=== PATIENT | female | born 1950 | race Caucasian/White ===

== ENCOUNTER → 2017-08-01 | Outpatient (CLI) | payer MEDICARE, OTHER | END | disposition home or self-care (01) | LOC: GMAM 10:57 | PROVIDERS: ATTEND Family Medicine | DX: Z00.00 Encounter for general adult medical examination without abnormal findings (principal); R53.82 Chronic fatigue, unspecified ==

== ENCOUNTER → 2017-08-06 | Outpatient (CLI) | payer MEDICARE, OTHER ==
--- NOTE | 2017-08-07 10:09 | MAM ---
EXAM DESCRIPTION: 3D Screening BILATERAL CLINICAL HISTORY: 67 yearsFemaleSCREENING no complaints. Remote family history of ovarian cancer. Postmenopausal. No HRT. Bilateral cyst aspirations. COMPARISON: Baseline study at this facility.. No prior reports available. TECHNIQUE: Bilateral CC and MLO projection full-field images, 3-D tomosynthesis digital mammographic technique. Also bilateral synthesized CC/ MLO full-field images. CAD not utilized. FINDINGS: The breast parenchymal density pattern is: Heterogeneously dense breast tissue, which may obscure small masses. No skin thickening or nipple retraction bilateral solitary coarse and microcalcifications. Focal asymmetry versus architectural distortion in the retroareolar left breast slightly superior and lateral to the posterior nipple line. Partially well-circumscribed margin. Not associated with abnormal calcifications. No focal, stellate mass or density, focal asymmetry , and no suspicious microcalcifications right breast. IMPRESSION: BI-RADS CATEGORY: 0 - INCOMPLETE- Need additional imaging evaluation. FOLLOW-UP: Recall for additional imaging: Targeted ultrasound of the retroareolar left breast.. Written communication concerning the IMPRESSION and Follow-up, will be mailed to the patient and referring health care provider. Electronically signed by: Crescencio Sears MD 08/07/2017 10:08 AM CDT
== END | disposition home or self-care (01) ==
LOC: FT 08:49
PROVIDERS: ATTEND Family Medicine
DX: Z12.31 Encounter for screening mammogram for malignant neoplasm of breast (principal)
CPT/HCPCS: 77063; G0202

== ENCOUNTER → 2017-08-15 | Outpatient (CLI) | payer MEDICARE, OTHER ==
--- NOTE | 2017-08-15 10:30 | US ---
EXAM DESCRIPTION: Breast,Left: Ultrasound CLINICAL HISTORY: 67 yearsFemaleABNORMAL MAMMO COMPARISON: Digital 3-D tomosynthesis screening bilateral breast August 06, 2017 TECHNIQUE: Transcutaneous scanning of the left retroareolar breast utilizing two-dimensional and Doppler modes. Scanning performed by the geodetic surveyor technologist and Dr. Sears. FINDINGS: Heterogeneous fibroglandular and fatty tissues behind the nipple at the 1200 clock position. No discrete solid mass or cyst. At the 1100 clock position 2 cm from the nipple is a anechoic structure with well-circumscribed arizmendi and parallel orientation. Posterior acoustic features and nonvascular. Dimensions are 1.7 x 1.3 x 0.4 cm. IMPRESSION: BI-RADS CATEGORY: 2 - BENIGN FINDINGS. FOLLOW UP: Routine digital bilateral mammographic screening, one year interval from July 2017. The findings and the follow-up plan were reviewed in person with the patient after the examination. Written communication explaining the IMPRESSION and follow-up, will be mailed to the patient and referring health care provider. According to the [employer], yearly mammograms are recommended starting at age 40 and continuing as long as a woman is in good health. Any breast change noted on a breast self-exam should be reported promptly to the patient's healthcare provider. Breast MRI is recommended for women with an approximately 20-25% or greater lifetime risk of breast cancer, including women with a strong family history of breast or ovarian cancer and women who have been treated for Hodgkin's disease. A negative mammographic report should not delay tissue diagnosis in patients with significant clinical history or physical findings. Extremely dense breast tissue limits the sensitivity of digital mammography. Electronically signed by: Crescencio Sears MD 08/15/2017 10:29 AM CDT
== END ==
LOC: MAMMO 09:16
PROVIDERS: ATTEND Family Medicine
DX: R92.8 Other abnormal and inconclusive findings on diagnostic imaging of breast (principal)

== ENCOUNTER 2017-11-12 05:42 | Day surgery (SDC) | payer MEDICARE, OTHER ==
[2017-11-12] MEDS ORDERED: PROPARACAINE 0.5% OPHTH SOL 15 ML BTTL ONE (05:48)
[2017-11-12] MEDS ORDERED: TROP 1%/CYCLOPEN 1%/PHENYL 2% DROPS ONE (05:49)
[2017-11-12] MEDS ORDERED: MIDAZOLAM INJ 2 MG/2 ML VIAL ONE ×2 (06:57→08:54)
[2017-11-12] MEDS ORDERED: PROPARACAINE 0.5% OPHTH SOL 15 ML BTTL LEFT_EYE ONE (08:53)
[2017-11-12] MEDS ORDERED: LIDOCAINE 1% PF 2 ML AMP INJ ONE (09:02)
[2017-11-12] MEDS ORDERED: TOBRAMYCIN SULF 0.3 % OPHT SOL 1 DROP LEFT_EYE ONE ×2 (09:02→09:09)
[2017-11-12] MEDS ORDERED: DEXAMETHASONE 0.1% OPHTH SOL 1 DROP LEFT_EYE ONE ×2 (09:02→09:09)
[2017-11-12] MEDS ORDERED: BRIMONIDINE 0.2% OPHTH DROPS LEFT_EYE ONE ×2 (09:03→09:09)
[2017-11-12 09:36] VITALS: O2SAT 98
[2017-11-13 09:09] VITALS: BP 134/82; TEMP 97.2
== END 2017-11-12 09:52 | disposition home or self-care (01) ==
LOC: AMB 05:42
PROVIDERS: ATTEND Ophthalmology
DX: H25.12 Age-related nuclear cataract, left eye (principal); J44.9 Chronic obstructive pulmonary disease, unspecified; F41.9 Anxiety disorder, unspecified; F17.200 Nicotine dependence, unspecified, uncomplicated; Z79.82 Long term (current) use of aspirin; Z79.899 Other long term (current) drug therapy
CPT/HCPCS: 00142; 66984; J2250

== ENCOUNTER 2017-11-26 05:37 | Day surgery (SDC) | payer MEDICARE, OTHER ==
[2017-11-26] MEDS ORDERED: TROP 1%/CYCLOPEN 1%/PHENYL 2% DROPS ONE ×2 (05:49)
[2017-11-26] MEDS ORDERED: PROPARACAINE 0.5% OPHTH SOL 15 ML BTTL ONE ×2 (05:49)
[2017-11-26] MEDS: TOBRAMYCIN SULF 0.3 % OPHT SOL 1 DROP RIGHT_EYE ONE ×2 (07:02→08:03)
[2017-11-26] MEDS ORDERED: MIDAZOLAM INJ 2 MG/2 ML VIAL ONE ×2 (07:11→07:57)
[2017-11-26] MEDS ORDERED: PROPARACAINE 0.5% OPHTH SOL 15 ML BTTL RIGHT_EYE ONE (07:52)
[2017-11-26] MEDS ORDERED: BRIMONIDINE 0.2% OPHTH DROPS RIGHT_EYE ONE ×3 (08:03→08:10)
[2017-11-26] MEDS ORDERED: LIDOCAINE 1% PF 2 ML AMP INJ ONE (08:03)
[2017-11-26] MEDS ORDERED: DEXAMETHASONE 0.1% OPHTH SOL 1 DROP RIGHT_EYE ONE ×3 (08:04→08:10)
[2017-11-26] MEDS ORDERED: TOBRAMYCIN SULF 0.3 % OPHT SOL 1 DROP RIGHT_EYE ONE ×2 (08:08→08:10)
[2017-11-27 07:58] VITALS: O2SAT 97
[2017-11-27 08:05] VITALS: BP 138/80; TEMP 97.1
== END 2017-11-26 09:00 | disposition home or self-care (01) ==
LOC: AMB 05:37
PROVIDERS: ATTEND Ophthalmology
DX: H25.11 Age-related nuclear cataract, right eye (principal); J44.9 Chronic obstructive pulmonary disease, unspecified; Z79.899 Other long term (current) drug therapy
CPT/HCPCS: 00142; 66984; J2250

== ENCOUNTER → 2018-08-13 | Outpatient (CLI) | payer MEDICARE, OTHER ==
--- NOTE | 2018-08-15 09:45 | MAM ---
EXAM DESCRIPTION: 3D Screening BILATERAL : Digital Mammography. CLINICAL HISTORY: 68 years Female SCREENING . No complaints or personal history of breast cancer. Remote family history of breast cancer. Childbirth. Postmenopausal. No HRT. Previous breast cyst aspiration benign. Lifetime risk of developing breast cancer (Tyrer-Cuzick model)(%): 5.4 COMPARISON: Bilateral screening digital breast tomosynthesis 08/06/2017.. TECHNIQUE: Bilateral CC and MLO projection full-field images, Digital tomosynthesis mammographic technique. Bilateral digital 2-D full-field MLO images. CAD not utilized. FINDINGS: The breast parenchymal density pattern is: Heterogeneously dense breast tissue, which may obscure small masses. No skin thickening or nipple retraction. Left axillary lymph nodes. Skin mole indicated by skin marker.. Scattered solitary microcalcifications bilaterally. Bilateral more nodular densities are stable. No new focal, stellate mass or density, focal asymmetry , and no suspicious microcalcifications bilaterally. Stable mammograms compared to prior study. IMPRESSION: Benign exam. BIRAD CATEGORY: 2 BENIGN FINDINGS. RECOMMENDATIONS: FOLLOW UP: Routine digital bilateral screening, one year interval from July 2018. Written communication explaining the IMPRESSION and follow-up, will be mailed to the patient and referring health care provider. According to the [employer], yearly mammograms are recommended starting at age 40 and continuing as long as a woman is in good health. Any breast change noted on a breast self-exam should be reported promptly to the patient's healthcare provider. Breast MRI is recommended for women with an approximately 20-25% or greater lifetime risk of breast cancer, including women with a strong family history of breast or ovarian cancer and women who have been treated for Hodgkin's disease. A negative mammographic report should not delay tissue diagnosis in patients with significant clinical history or physical findings. Extremely dense breast tissue limits the sensitivity of digital mammography. Electronically signed by: Crescencio Sears MD 08/15/2018 9:44 AM CDT
== END ==
LOC: MAMMO 09:00
PROVIDERS: ATTEND Family Medicine
DX: Z12.31 Encounter for screening mammogram for malignant neoplasm of breast (principal)

== ENCOUNTER → 2018-09-24 | Outpatient (CLI) | payer MEDICARE, OTHER ==
--- NOTE | 2018-09-24 13:23 | CT ---
Procedure: CT LUNG SCREENING Exam Date: 09/24/2018. Ordering Provider: Angel Luis Stephen Clinical Indication: HISTORY OF TOBACCO USE This patient meets eligibility criteria for low-dose CT lung cancer screening. Comparison: None. Technique: Using a multislice scanner, sequential helical axial imaging was obtained in the thorax, 2.5 mm thickness, 2.5 mm separation, from the level of the thoracic inlet through the lung bases without IV contrast. A low dose protocol was utilized: CTDI: 1.75 mGy. 120. kVp. 45 mA. 2D sagittal and coronal reconstructed images, 6.0 mm thickness, were obtained. This exam was performed according to our departmental dose optimization program which includes use of automated exposure control, adjustment of the mA and/or kV according to patient size and/or use of iterative reconstruction technique. Nodule measurements under 10 mm are given as mean value of 3 axes diameters. FINDINGS: Lungs and large airways: Multiple parenchymal blebs bilaterally more numerous in the upper lung jose and less numerous in the lung bases. 5 mm solid nodule versus extension of focal pleural thickening posterior right apex on axial sequence 2, image 14. 3 mm nodule associated with the lateral right major fissure at the posterior right middle lobe on image 77. Scarring versus atelectasis associated with the pleura and parenchyma in the posterior recess of the right lower lobe. 2 mm calcified nodule associated with the superior aspect of the right major fissure in the posterior right upper lobe on image 43. 3 mm calcified nodule in the posterior left upper lobe just anterior to the left major fissure on image 69. Minimal atelectasis in the posterior recess of the left lower lobe. Pleura: Bilateral focal pleural thickening most prominently in the posterior right apex. No effusion or pneumothorax bilaterally. Mediastinum and emilia: evaluation limited by low dose technique and lack of IV contrast. Scattered lymph nodes but no large soft tissue masses. Heart and great vessels: Minimal atherosclerotic calcification the aorta. Coronary artery calcifications. Chest wall, lower neck, axillae: Evaluation also limited by same factors as described above. Asymmetric masslike density in the retroareolar left breast compared to the right breast retroareolar tissues. No enlarged axillary nodes. No other remarkable findings. Upper abdomen: 1.75 mm low-density mass in the superior lateral right liver with Hounsfield density +1.25. This is consistent with a cyst. No free fluid or free air in the included peritoneal space. Osseous structures: Evaluation limited by low dose MIP technique. Scoliosis and spondylosis in the included thoracic spine. No lytic or blastic lesions. IMPRESSION: 1. Emphysematous changes in the bilateral lungs more prevalent in the upper lung jose. 5 mm solid nodule versus extension of pleural thickening in the posterior right apex. Other nodules and densities are subclinical and not significant. [facility] Best Practice recommendations are made according to lung RADS category classification. Please see below for Lung RADS category and FOLLOW-UP.* *Lung RADS category CATEGORY 2- Nodules with a very low likelihood (less than 1%) of becoming a clinically active cancer due to size or lack of growth. Nodules: Solid or part solid nodule(s) less than 6mm, new solid nodule less than 4mm. Ground glass nodule(s) less than 20mm or unchanged or slow growing ground glass nodule 20mm or greater. Cat 3 or 4 nodule unchanged for 3 or more months. FOLLOW-UP: Continue annual screening with a Low Dose Chest CT in 12 months for re-evaluation. 2. Lung RADS Modifier S - Clinically Significant or Potentially Clinically Significant Findings (non lung cancer). Possible mass density retroareolar left breast. FOLLOW-UP: Recommend bilateral diagnostic digital mammographic examination, if not performed in the past year. Targeted left breast ultrasound if indicated by diagnostic images. Electronically signed by: Crescencio Sears MD 09/24/2018 1:22 PM TRAVEL INSURANCE AGENT
== END ==
LOC: CT 08:00
PROVIDERS: ATTEND Family Medicine
DX: Z87.891 Personal history of nicotine dependence (principal)

== ENCOUNTER → 2019-07-14 | Outpatient (CLI) | payer MEDICARE, OTHER | LOC: GMAM 10:36 | PROVIDERS: ATTEND Family Medicine | DX: R79.9 Abnormal finding of blood chemistry, unspecified (principal) ==

== ENCOUNTER → 2019-09-03 | Outpatient (CLI) | payer MEDICARE, OTHER ==
--- NOTE | 2019-09-04 18:43 | MAM ---
EXAM DESCRIPTION: 3D Screening BILATERAL : Digital Mammography. CLINICAL HISTORY: 69 years Female ANNUAL SCREENING . No complaints or personal history of breast cancer. Remote family history of breast and ovarian cancer. Menarche unknown. Childbirth. Postmenopausal unknown duration. No HRT. Prior breast cyst aspiration benign. Lifetime risk of developing breast cancer (Tyrer-Cuzick model)(%): 6.6. COMPARISON: Bilateral screening digital breast tomosynthesis July 2018 and July 2017. TECHNIQUE: Bilateral CC and MLO projection full-field images, digital tomosynthesis mammographic technique Bilateral digital 2-D full-field MLO images. CAD not available for tomosynthesis or 2-D images. FINDINGS: The breast parenchymal density pattern is: Heterogeneously dense breast tissue, which may obscure small masses. No skin thickening or nipple retraction. Bilateral microcalcifications scattered throughout the dense tissue. Skin mole left breast. No new focal, stellate mass or density, focal asymmetry , and no suspicious microcalcifications bilaterally. Stable mammograms compared to prior study. IMPRESSION: EXAM DESCRIPTION: 3D Screening BILATERAL Benign exam. BIRAD CATEGORY: 2 BENIGN FINDINGS. RECOMMENDATIONS: FOLLOW UP: Routine digital bilateral mammographic screening, one year interval from July 2019. Written communication explaining the IMPRESSION and follow-up, will be mailed to the patient and referring health care provider. The FINDINGS and the FOLLOW-UP plan were reviewed in person with the patient after the examination. According to the [employer], yearly mammograms are recommended starting at age 40 and continuing as long as a woman is in good health. Any breast change noted on a breast self-exam should be reported promptly to the patient's healthcare provider. Breast MRI is recommended for women with an approximately 20-25% or greater lifetime risk of breast cancer, including women with a strong family history of breast or ovarian cancer and women who have been treated for Hodgkin's disease. A negative mammographic report should not delay tissue diagnosis in patients with significant clinical history or physical findings. Extremely dense breast tissue limits the sensitivity of digital mammography. Electronically signed by: Crescencio Sears MD 09/04/2019 6:41 PM GENERATOR SWITCHBOARD OPERATOR
== END ==
LOC: MAMMO 07:59
PROVIDERS: ATTEND Family Medicine
DX: Z12.31 Encounter for screening mammogram for malignant neoplasm of breast (principal)

== ENCOUNTER → 2019-09-29 | Outpatient (CLI) | payer MEDICARE, OTHER ==
--- NOTE | 2019-09-30 09:14 | CT ---
Procedure: CT LUNG SCREENING Exam Date: 09/29/2019. Ordering Provider: Angel Luis Stephen Clinical Indication: PERSONAL HISTORY OF TOBACCO USE current cigarette smoker. 47 pack years. This patient meets eligibility criteria for low-dose CT lung cancer screening. Comparison: Low-dose CT lung cancer screening examination 24 September 2018. Technique: Using a multislice scanner, sequential helical axial imaging was obtained in the thorax, 2.5 mm thickness, 2.5 mm separation, from the level of the thoracic inlet through the lung bases without IV contrast. A low dose protocol was utilized for BMI less than 30: BMI: 19.3.. CTDI: 1.76 mGy. 120. kVp. 45 mA. DLP 68.8 mGy-cm. 2D sagittal and coronal reconstructed images, 6.0 mm thickness, were obtained. This exam was performed according to our departmental dose optimization program which includes use of automated exposure control, adjustment of the mA and/or kV according to patient size and/or use of iterative reconstruction technique. Nodule measurements under 10 mm are given as mean value of 3 axes diameters. FINDINGS: Lungs and large airways: Dilated airspaces more prevalent and larger in the upper lung jose with multiple bulla in the upper lung jose and more blebs in the lower lung jose in a centrilobular distribution. Stable bibasilar posterior dependent atelectasis and pleural parenchymal scarring. Stable 5 mm subpleural solid nodule versus pleural thickening posterior lateral right lung apex on CT axial images 2/18-21. Stable 3 mm perifissural nodule associated with the lateral right horizontal fissure in the right middle lobe on image 2/81. A second smaller para fissural nodule more superior on axial image 2/47. 4.5 mm solid nodule associated with scarring, subpleural location in the base of the right upper lobe on images 2/50-51, slightly larger since the prior study. Stable subpleural groundglass nodule 2 mm medial superior segment left lower lobe on image 2/72. Stable solitary millimeter nodule subpleural or pleural thickening lateral left upper lobe on image 2/44. Pleura and space: Sporadic bilateral focal pleural thickening more in the upper lung jose. Mediastinum and emilia: evaluation limited by low dose technique and lack of IV contrast. Scattered lymph nodes with no dominant soft tissue mass. Heart and great vessels: Atherosclerotic calcifications of the coronary vessels Chest wall, lower neck, axillae: Evaluation also limited by same factors as described above. Negative. Upper abdomen: Evaluation limited by low-dose technique. No free air or free fluid. Large calcified stone in the gallbladder. 2 cm cyst right lobe of the liver is stable. Left adrenal gland slightly enlarged but stable with Hounsfield density less than 0. Osseous structures: Evaluation limited by low dose MIP technique. Scoliosis and thoracic spondylosis and also more advanced spondylosis in the cervical spine. Tracheal calcifications. Minimal sternoclavicular arthrosis. Stable since the prior study. IMPRESSION: Emphysematous changes again seen throughout the lungs, more severe in the upper lobes. Scarring in the bases. Bilateral nodules are subclinical in size or stable. A nodule 4.5 mm and solid associated with parenchymal scarring in the subpleural in the base of the right upper lobe has enlarged slightly since the prior study. [facility] Best Practice Recommendations: please see below for Lung RADS category and FOLLOW-UP.* *Lung RADS category CATEGORY 3 - Probably benign (1-2% malignancy probability), short term follow-up suggested. NODULES: Solid nodule(s) 6mm (113.1 mm3) to less than 8mm (268.1 mm3) at baseline, or new 4mm (33.5 mm3) to under 6mm (113.1 mm3) solid nodule. Part solid nodule total diameter >= 6mm (113.1 mm3) with solid component less than 6mm, or new less than 6mm total diameter nodule] OR new <6 mm (113.1 mm3) total diameter. GGN >= 30 mm (>=57626 mm3) on baseline CT or new. FOLLOW-UP: Please return for a Low Dose (Non-contrast) Chest CT in 6 months for re-evaluation. Electronically signed by: Crescencio Sears MD 09/30/2019 9:12 AM BRIDGE OPERATOR
== END ==
LOC: CT 08:00
PROVIDERS: ATTEND Family Medicine
DX: Z87.891 Personal history of nicotine dependence (principal); J43.9 Emphysema, unspecified; R91.8 Other nonspecific abnormal finding of lung field

== ENCOUNTER → 2020-05-05 | Outpatient (CLI) | payer MEDICARE, OTHER ==
--- NOTE | 2020-05-05 14:08 | CT ---
EXAM DESCRIPTION: Chest w/o Contrast : Computed Tomography. CLINICAL HISTORY: 69 years Female LUNG NODULE COMPARISON: CT low dose lung cancer screening September 2019. Technique: Using a multislice scanner, sequential helical axial imaging was obtained in the thorax, 2.5 mm thickness, 2.5 mm separation, from the level of the thoracic inlet through the lung bases without IV contrast. A low dose protocol was utilized for BMI less than 30: BMI: 20.9. CTDI: 1.76 mGy. 120. kVp. 45 mA. DLP 68 mGy-cm. 2D sagittal and coronal reconstructed images, 6.0 mm thickness, were obtained. This exam was performed according to our departmental dose optimization program which includes use of automated exposure control, adjustment of the mA and/or kV according to patient size and/or use of iterative reconstruction technique. Nodule measurements under 10 mm are given as mean value of 3 axes diameters. FINDINGS: Lungs and large airways: Multiple pulmonary blebs in a centrilobular distribution more numerous in the upper lung jose compared to the lower lung jose. 4.7 mm subpleural solid nodule In the posterior inferior right lower lobe on axial series 2, image 55 is unchanged. Stable perifissural nodule on the lateral right major fissure on axial image 2/86 with no interval change. Stable pleural parenchymal scarring base of right lower lobe. Other smaller nodules are stable. No new abnormal nodules and no mass. No focal or chronic infiltrates. Pleural spaces: Apical pleural thickening bilaterally otherwise negative. Mediastinum and Monica: Evaluation limited due to lack of IV contrast stable lymph nodes with no new dominant soft tissue mass Great vessels and Heart: Evaluation limited due to lack of IV contrast. Stable atherosclerotic calcifications in the coronary arteries. Minimal in the aortic arch. Soft tissues of neck base, axillae, and chest wall: Evaluation limited due to lack of IV contrast. Unremarkable. Upper abdomen: Stable cysts in the liver. Adrenal glands are negative. No free air or free fluid in the included peritoneal space. Osseous structures: Stable spondylosis in the thoracic and cervical spine. Sternoclavicular and glenohumeral arthrosis. IMPRESSION: Stable nodule right upper lobe. No change in emphysematous lungs bilaterally, more prevalent in the upper lung jose. No new nodule or mass. No acute or enlarging infiltrate. [facility] Best Practice guidelines: CATEGORY 2- Nodules with a very low likelihood (less than 1%) of becoming a clinically active cancer due to size or lack of growth. Nodules: Perifissural nodule(s) < 10 mm. (526mm3). Solid or part solid nodule(s) less than 6mm (113.1 mm3), new solid nodule less than 4mm (33.5 mm3). Ground glass nodule(s) less than 30mm (92756.2 mm3) or unchanged or slow growing ground glass nodule 30mm or greater. Cat 3 or 4 nodule unchanged for 3 or more months. FOLLOW-UP: Continue annual screening with a Low Dose Chest CT in 12 months for re-evaluation. Electronically signed by: Crescencio Sears MD 05/05/2020 2:07 PM CDT
== END ==
LOC: CT 08:00
PROVIDERS: ATTEND Family Medicine
DX: R91.1 Solitary pulmonary nodule (principal); F17.200 Nicotine dependence, unspecified, uncomplicated

== ENCOUNTER → 2020-07-12 | Outpatient (CLI) | payer MEDICARE, OTHER | LOC: GMAM 11:53 | PROVIDERS: ATTEND Family Medicine | DX: R94.6 Abnormal results of thyroid function studies (principal); R79.9 Abnormal finding of blood chemistry, unspecified; R94.5 Abnormal results of liver function studies ==

== ENCOUNTER → 2020-08-30 | Outpatient (CLI) | payer MEDICARE, OTHER ==
--- NOTE | 2020-08-31 09:41 | MAM ---
EXAM DESCRIPTION: 3D Screening BILATERAL : Digital Mammography. CLINICAL HISTORY: 70 years Female SCREENING . No complaints. Remote family history of breast cancer. Menarche age unknown. Childbirth age 22. Menopause age unknown. No HRT. Benign Cyst aspiration right breast. Lifetime risk of developing breast cancer (Tyrer-Cuzick model)(%): 5.0. COMPARISON: Bilateral screening digital breast tomosynthesis August 2019 and July 2018.. TECHNIQUE: Bilateral CC and MLO projection full-field images, digital tomosynthesis mammographic technique. Bilateral digital 2-D full-field MLO images. CAD available for 2-D images. FINDINGS: The breast parenchymal density pattern is: Heterogeneously dense breast tissue, which may obscure small masses. No skin thickening or nipple retraction. Solitary microcalcifications. Axillary nodes. Intramammary lymph nodes or cysts stable bilaterally. Skin mole marker. No new focal, stellate mass or density, focal asymmetry , and no suspicious microcalcifications bilaterally. Stable mammograms compared to prior study. Taking into account, differences in mammographic technique. IMPRESSION: Benign exam. BIRAD CATEGORY: 2 BENIGN FINDINGS. RECOMMENDATIONS: FOLLOW UP: Routine digital bilateral mammographic screening, one year interval from August 2020. Written communication explaining the IMPRESSION and follow-up, will be mailed to the patient and referring health care provider. According to the [employer], yearly mammograms are recommended starting at age 40 and continuing as long as a woman is in good health. Any breast change noted on a breast self-exam should be reported promptly to the patient's healthcare provider. Breast MRI is recommended for women with an approximately 20-25% or greater lifetime risk of breast cancer, including women with a strong family history of breast or ovarian cancer and women who have been treated for Hodgkin's disease. A negative mammographic report should not delay tissue diagnosis in patients with significant clinical history or physical findings. Extremely dense breast tissue limits the sensitivity of digital mammography. Electronically signed by: Crescencio Sears MD 08/31/2020 9:39 AM PERFORMANCE REPORTER
== END ==
LOC: MAMMO 09:30
PROVIDERS: ATTEND Family Medicine
DX: Z12.31 Encounter for screening mammogram for malignant neoplasm of breast (principal)